=== PATIENT | female | born 1950 | race African-American/Black ===

== ENCOUNTER 2017-07-26 08:57 | Emergency (ER) | payer OTHER, MEDICARE ==
[~2017-07-26] VITALS: Ht 170.2 cm; Wt 110.0 kg
[2017-07-26] MEDS ORDERED: IBUPROFEN 600MG TABLET PO ONE (10:45)
[2017-07-26 12:13] VITALS: BP 211/84
== END 2017-07-26 12:20 | disposition home or self-care (01) ==
LOC: ER 09:25
DX: S05.12XA Contusion of eyeball and orbital tissues, left eye, initial encounter (principal); Y04.2XXA Assault by strike against or bumped into by another person, initial encounter; Y93.89 Activity, other specified; Y92.410 Unspecified street and highway as the place of occurrence of the external cause; I13.0 Hypertensive heart and chronic kidney disease with heart failure and stage 1 through stage 4 chronic kidney disease, or unspecified chronic kidney disease; I50.9 Heart failure, unspecified; N18.9 Chronic kidney disease, unspecified; E11.22 Type 2 diabetes mellitus with diabetic chronic kidney disease; J45.909 Unspecified asthma, uncomplicated
CPT/HCPCS: 70486; 99284